=== PATIENT | female | born 1990 | race Caucasian/White ===

== ENCOUNTER 2018-01-14 19:41 | Emergency (ER) | payer OTHER ==
--- NOTE | 2018-01-14 21:15 | EDPHYS ---
Physician Documentation [facility] Name: Gayle Dyson Age: 27 yrs Sex: Female : 1990 Arrival Date: 01/14/2018 Time: 19:43 Bed 14 Private MD: ED Physician Yosi Davenport HPI: 01/14 21:00 This 27 yrs old Female presents to ER via Ambulatory with complaints of Sore pm1 Throat. 21:00 The patient presents with sore throat. The patient describes throat pain as raw, pm1 scratchy. Onset: The symptoms/episode began/occurred 2 day(s) ago. Severity of symptoms: in the emergency department the symptoms are actually worse. Modifying factors: The symptoms are alleviated by nothing, the symptoms are aggravated by swallowing, Patient's oral intake status: good unaware of sick contact. Associated signs and symptoms: Pertinent positives: fever, Pertinent negatives dysphagia, rhinorrhea, shortness of breath, vomiting. The patient has not recently seen a physician. Patient able to talk and open mouth fully. Patient able to swallow and eat food. 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 - Social history:: Smoking status: Patient/guardian denies using tobacco, never smoked. - Ebola Screening: : Patient negative for fever greater than or equal to 101.5 degrees Fahrenheit, and additional compatible Ebola Virus Disease symptoms. ROS: 21:00 Constitutional: Negative for fever, chills, and weight loss, Eyes: Negative for injury, pm1 pain, redness, and discharge. 21:00 Cardiovascular: Negative for chest pain, palpitations, and edema, Respiratory: Negative for shortness of breath, cough, wheezing, and pleuritic chest pain, Abdomen/GI: Negative for abdominal pain, nausea, vomiting, diarrhea, and constipation, Back: Negative for injury and pain, MS/Extremity: Negative for injury and deformity, Skin: Negative for injury, rash, and discoloration, Neuro: Negative for headache, weakness, numbness, tingling, and seizure. 21:00 ENT: Positive for sore throat, Negative for dental pain, difficulty swallowing, difficulty handling secretions. 21:00 Neck: Positive for swollen nodes. Exam: 21:00 Constitutional: This is a well developed, well nourished patient who is awake, alert, pm1 and in no acute distress. Head/Face: Normocephalic, atraumatic. Eyes: Pupils equal round and reactive to light, extra-ocular motions intact. Lids and lashes normal. Conjunctiva and sclera are non-icteric and not injected. Cornea within normal limits. Periorbital areas with no swelling, redness, or edema. 21:00 Neck: Trachea midline, no thyromegaly or masses palpated, and no cervical lymphadenopathy. Supple, full range of motion without nuchal rigidity, or vertebral point tenderness. No Meningismus. Chest/axilla: Normal chest wall appearance and motion. Nontender with no deformity. No lesions are appreciated. Cardiovascular: Regular rate and rhythm with a normal S1 and S2. No gallops, murmurs, or rubs. Normal PMI, no JVD. No pulse deficits. Respiratory: Lungs have equal breath sounds bilaterally, clear to auscultation and percussion. No rales, rhonchi or wheezes noted. No increased work of breathing, no retractions or nasal flaring. Abdomen/GI: Soft, non-tender, with normal bowel sounds. No distension or tympany. No guarding or rebound. No evidence of tenderness throughout. Back: No spinal tenderness. No costovertebral tenderness. Full range of motion. Skin: Warm, dry with normal turgor. Normal color with no rashes, no lesions, and no evidence of cellulitis. MS/ Extremity: Pulses equal, no cyanosis. Neurovascular intact. Full, normal range of motion. 21:00 ENT: External ear(s): are unremarkable, Ear canal(s): are normal, TM's: are normal, Nose: is normal, Mouth: is normal, No trismus or swelling to floor of mouth, Posterior pharynx: Tonsils: bilaterally enlarged, with erythema, with exudate, no ulcerations, peritonsillar mass, is not appreciated, pooling of secretions, is not appreciated. 21:00 Neuro: Orientation: is normal, Motor: moves all fours. Vital Signs: 20:03 BP 137 / 84; Pulse 100; Resp 18; Temp 99.4(O); Pulse Ox 100% on R/A; Weight 107.5 kg sr5 (R); Height 5 ft. 7 in. (170.18 cm); Pain 8/10; 20:03 Body Mass Index 37.12 (107.50 kg, 170.18 cm) sr5 MDM: 20:27 Patient medically screened. pm1 21:13 Data reviewed: vital signs. Data interpreted: Pulse oximetry: on room air is 100 %. pm1 Interpretation: normal. Counseling: I had a detailed discussion with the patient and/or guardian regarding: the historical points, exam findings, and any diagnostic results supporting the discharge/admit diagnosis, lab results, the need for outpatient follow up, to return to the emergency department if symptoms worsen or persist or if there are any questions or concerns that arise at home. 01/14 20:11 Order name: Strep; Complete Time: 21:13 ak 01/14 21:24 Order name: Urine Dipstick--Ancillary (enter results) 2 01/14 21:24 Order name: Urine --Ancillary (enter results) 2 Administered Medications: No medications were administered Disposition: 01/15 01:59 Co-signature as Attending Physician, Yosi Davenport MD. rn Disposition: 01/14/18 21:14 Discharged to Home. Impression: Streptococcal pharyngitis. - Condition is Stable. - Discharge Instructions: Strep Throat. - Prescriptions for Amoxicillin 500 mg Oral Capsule - take 1 capsule by ORAL route every 8 hours for 10 days; 30 tablet. - Medication Reconciliation Form, Thank You Letter, Antibiotic Education form. - Follow up: Emergency Department; When: As needed; Reason: Worsening of condition. Follow up: Private Physician; When: 2 - 3 days; Reason: Recheck today's complaints, Continuance of care, Re-evaluation by your physician. - Problem is new. - Symptoms have improved. Signatures: Dispatcher [employer] EDMS Yosi Davenport MD MD rn Krenek, Amber RN RN ak1 Arden Castro, OYSTER FARMER OYSTER FARMER pm1 ReseckerDaniele RN RN sr5 Corrections: (The following items were deleted from the chart) 01/14 21:33 21:14 01/14/2018 21:14 Discharged to Home. Impression: Streptococcal pharyngitis. ak1 Condition is Stable. Forms are Medication Reconciliation Form, Thank You Letter, Antibiotic Education, Prescription Opioid Use. Follow up: Emergency Department; When: As needed; Reason: Worsening of condition. Follow up: Private Physician; When: 2 - 3 days; Reason: Recheck today's complaints, Continuance of care, Re-evaluation by your physician. Problem is new. Symptoms have improved. pm1
--- NOTE | 2018-01-14 21:15 | ER ---
Nurse's Notes [facility] Name: Gayle Dyson Age: 27 yrs Sex: Female : 1990 Arrival Date: 01/14/2018 Time: 19:43 Bed 14 Private MD: Diagnosis: Streptococcal pharyngitis Presentation: 01/14 20:02 Presenting complaint: Patient states: "Swollen tonsils" since , fever. Pt sr5 obviously talking abnormal/limited movement of mouth. Transition of care: patient was not received from another setting of care. Onset of symptoms was January 11, 2018. Risk Assessment: Do you want to hurt yourself or someone else? Patient reports no desire to harm self or others. Initial Sepsis Screen: Does the patient meet any 2 criteria? No. Patient's initial sepsis screen is negative. Does the patient have a suspected source of infection? No. Patient's initial sepsis screen is negative. Care prior to arrival: None. 20:02 Method Of Arrival: Ambulatory sr5 20:02 Acuity: MYRON 3 sr5 Triage Assessment: 20:03 General: Appears in no apparent distress. Behavior is calm, cooperative. Pain: sr5 Complains of pain in neck. EENT: Reports swollen tonsils, difficulty swallowing. Neuro: No deficits noted. Cardiovascular: No deficits noted. Respiratory: No deficits noted. 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 - Social history:: Smoking status: Patient/guardian denies using tobacco, never smoked. - Ebola Screening: : Patient negative for fever greater than or equal to 101.5 degrees Fahrenheit, and additional compatible Ebola Virus Disease symptoms. Screenin:08 Abuse screen: Denies threats or abuse. Denies injuries from another. Nutritional ak1 screening: No deficits noted. Tuberculosis screening: No symptoms or risk factors identified. Fall Risk None identified. Assessment: 20:08 Respiratory: Airway is patent Respiratory effort is even, unlabored, Breath sounds are ak1 clear bilaterally. 20:18 General: Appears in no apparent distress. Behavior is calm, cooperative. Neuro: No ak1 deficits noted. Cardiovascular: Reports None. GI: No signs and/or symptoms were reported involving the gastrointestinal system. : No signs and/or symptoms were reported regarding the genitourinary system. EENT: Throat is reddened has patchy exudate has enlarged tonsils bilaterally. Derm: No signs and/or symptoms reported regarding the dermatologic system. Musculoskeletal: No signs and/or symptoms reported regarding the musculoskeletal system. Vital Signs: 20:03 BP 137 / 84; Pulse 100; Resp 18; Temp 99.4(O); Pulse Ox 100% on R/A; Weight 107.5 kg sr5 (R); Height 5 ft. 7 in. (170.18 cm); Pain 8/10; 20:03 Body Mass Index 37.12 (107.50 kg, 170.18 cm) sr5 ED Course: 19:43 Patient arrived in ED. es 20:03 Triage completed. sr5 20:03 Arm band placed on right wrist. sr5 20:07 Huong Garcia RN is Primary Nurse. ak1 20:08 Patient has correct armband on for positive identification. Bed in low position. Call ak1 light in reach. Side rails up X 1. 20:27 Arden Castro [facility]. pm1 20:27 Yosi Davenport MD is Attending Physician. pm1 Administered Medications: No medications were administered Outcome: 21:14 Discharge ordered by . pm1 21:33 Patient left the ED. ak1 Signatures: Liv Chandler Huong Garcia RN RN ak1 Arden Castro NP CATHODE BUILDER pm1 Daniele Law RN RN sr5
[2018-01-14 21:39] VITALS: BP 137/84; TEMP 99.4; O2SAT 100
[2018-01-14 21:45] LABS: Urine Blood TRACE (NEG); Urine Glucose NEGATIVE (NEG); Urine Protein 1+ (NEG); Urine Specific Gravity 1.025 (1.005-1.030)
== END 2018-01-14 21:33 | disposition home or self-care (01) ==
LOC: ER 19:41
DX: J02.0 Streptococcal pharyngitis (principal)
CPT/HCPCS: 81003; 81025; 87081; 99281

== ENCOUNTER → 2018-10-09 | Day surgery (SDC) | payer SELFPAY ==
--- NOTE | 2018-10-09 11:21 | RAD REPORT ---
EXAM DESCRIPTION: US - Guided FNA Non Breast - 10/09/2018 10:06 am CLINICAL HISTORY: E07.9, E04.9 COMPARISON: Outside ultrasound study dated August TECHNIQUE: Patient presents for ultrasound-guided fine-needle aspiration of bilateral thyroid nodule s. All findings for both nodule FNA procedure is detailed in the other report. IMPRESSION: Fine-needle aspiration was performed of the partially calcified right thyroid nodule. Pr ocedure for this nodule and the left-side nodule detailed in the of the report.
--- NOTE | 2018-10-09 11:30 | RAD REPORT ---
EXAM DESCRIPTION: US - Guided FNA Non Breast - 10/09/2018 10:06 am CLINICAL HISTORY: E07.9, E04.9 COMPARISON: Outside ultrasound study September 08 TECHNIQUE: Patient presents for bilateral ultrasound-guided FNA procedure. Patient had outside exami nation showing multiple bilateral thyroid nodules with 2 nodules in the gland suspicious enough for a spiration. Patient had no contraindicated allergy or medication history. The ultrasound-guided FNA procedure, risks and alternatives were discussed with the patient in detail . After answering all questions, both oral and written consent were obtained. Time out procedure was performed. The prior outside imaging study had been reviewed. The entire anterior neck was prepped and draped in the usual sterile fashion. A 4 centimeter complex mixed solid and cystic left thyroid nodule was selected for fine needle aspiration. From an anterolat eral approach the skin and deeper tissues were anesthetized with 1% lidocaine. Under direct sonograph ic visualization, a 25 gauge needle was advanced into the complex left nodule. Aspiration was perform ed of the solid component or thick septations. Multiple to and fro excursions of the needle tip perfo rmed. The aspiration was then repeated with 3 additional 25 gauge needles. Again, aspiration was perf ormed of thickened septations or solid components within this mixed nodule. At the conclusion there w as a fifth aspiration of a portion of the liquid component of this nodule to be retained for cytology . At the conclusion of the left-side aspiration postprocedure imaging showed a small amount of blood collecting in the cystic portion of the nodule. No overall enlargement of the nodule. There was no he morrhage in the surrounding soft tissues. Sterile bandage placed to the puncture site. Approximately 15 millimeter mixed echogenicity mass of the right thyroid was subjected to fine-needle aspiration. This nodule had calcifications. Soft tissues had RAD been prepped and draped. From an an terolateral approach the skin and deeper tissues were anesthetized with 1% lidocaine. Under direct so nographic visualization a 25 gauge needle was advanced into the nodule. Aspiration procedure was perf ormed in then repeated with 3 additional 25 gauge needles all under sonographic guidance. At the conclusion of the right-side aspiration there was no hematoma within the nodule or surrounding soft tissues. Sterile bandage placed to the puncture site. Postprocedure care and precaution instructions were given to the patient. At the conclusion the proce dure the patient indicated no pain. There is no palpable mass in the soft tissues. All obtained material was given to pathology for cytology/ histology evaluation. IMPRESSION: Ultrasound-guided fine-needle aspiration was performed of a 4 centimeter mixed solid and cystic nodule in the left lobe of the thyroid gland as well as a 15 millimeter partially calcified n odule in the right lobe.
== END ==
LOC: FNA 09:13
PROVIDERS: ATTEND Radiology Diagnostic Radiology
DX: E04.2 Nontoxic multinodular goiter (principal); E07.9 Disorder of thyroid, unspecified
CPT/HCPCS: 88162